=== PATIENT | female | born 1985 | race Hispanic/Latino ===

== ENCOUNTER 2017-08-28 17:59 | Emergency (ER) | payer BC, OTHER ==
[~2017-08-28 17:59] MED LIST: ISOVUE-370 76%-LOCM 1 ML ONE
[2017-08-28 18:31] LABS: #Basophils 0.1 thou/uL (0.0-0.2); #Eosinphils 0.1 thou/uL (0.0-0.7); #Lymphocytes 2.2 thou/uL (1.20-3.40); #Monocytes 0.6 thou/uL (0.11-0.59); #Neutrophils 4.8 thou/uL (1.40-6.50); %Basophils 1.7 % (0.0-1.0); %Eosinophils 1.3 % (0.0-10.0); %Lymphocytes 28.1 % (21.0-51.0); %Monocytes 7.9 % (0.0-10.0); Hemoglobin 14.2 g/dL (12.0-16.0); Mean Corpuscular HGB CONC 32.8 g/dL (32.0-36.0); Mean Corpuscular Hemoglobin 27.5 pg (27.0-31.0); Mean Platelet Volume 6.9 fL (7.4-10.4); Platelet Count 293 thou/uL (130-400); RBC Distribution Width 12.1 % (11.5-14.5); Red Blood Cell (RBC) Count 5.16 mill/uL (4.20-5.40); White Blood Cell (WBC) Count 7.8 thou/uL (4.8-10.8)
[2017-08-28 18:57] LABS: ALT (SGPT) 47 U/L (8-55); AST (SGOT) 24 U/L (5-34); Albumin 4.4 g/dL (3.5-5.0); Alkaline Phosphatase 67 U/L (40-150); Anion Gap 9 mmol/L (10-20); BUN (Urea Nitrogen) 13 mg/dL (7.0-18.7); Bilirubin, Total 0.4 mg/dL (0.2-1.2); Calc. Creatinine Clearance 0 mL/min (70-130); Calcium 9.5 mg/dL (7.8-10.44); Carbon Dioxide 27 mmol/L (22-29); Chloride 104 mmol/L (98-107); Estimated GFR-MDRD 87; Globulin 3.4 g/dL (2.4-3.5); Glucose 88 mg/dL (70-105); Protein, Total 7.8 g/dL (6.0-8.3); Sodium 136 mmol/L (136-145)
[2017-08-28 19:32] LABS: Bilirubin Negative (Negative); Blood, Urine Negative (Negative); Clarity CLEAR (Clear); Glucose, Urine (Dipstick) Negative (Negative); Leukocyte Negative (Negative); Nitrite Negative (Negative); Protein, Urine (Dipstick) Negative (Neg-Trace); Specific Gravity, Urine 1.023 (1.002-1.036); Urobilinogen 0.2 mg/dL (0.2-1.0); pH, Urine 7.5 (5.0-9.0)
[2017-08-28 19:34] LABS: Pregnancy Test - Urine (BHCG) Negative (Negative); Pregu Control Background? CLEAR/WHITE (CLR/WHITE); Pregu Control Bar Appear? YES (CONTROL BAR); Specific Gravity 1.023 (1.002-1.036)
[2017-08-28] MEDS ORDERED: Ondansetron HCl/PF 4 MG/2 ML Vial ONE (21:15)
--- NOTE | 2017-08-28 23:19 | CT ---
CT ABDOMEN AND PELVIS WITH CONTRAST: History: 32-year-old female with abdominal pain. Nausea. FINDINGS: The lung bases are clear. The liver demonstrates decreased attenuation compared to the spleen consist ent with fatty infiltration. The patient is post cholecystectomy. The spleen, pancreas, adrenal gland s, and kidneys are normal. No free air or free fluid or lymphadenopathy is seen in the abdomen or pel vis. A normal appearing appendix is present. There is an IUD in the uterus. A 3.5 cm right adnexal cy st is seen, likely ovarian. IMPRESSION: 1. No evidence of appendicitis. 2. Fatty liver. 3. 3.5 cm right adnexal cystic mass, likely ovarian. POS: [facility]
[2017-08-28] MEDS ORDERED: Ketorolac Tromethamine 30 MG/ML VIAL ONE (23:52)
--- NOTE | 2017-08-29 07:51 | ULT ---
PRELIMINARY REPORT/[facility]/EMERGENCY AFTER HOURS PROCEDURE: EXAM: US Pelvis, Transvaginal CLINICAL HISTORY: 32 years old, female; Pain; Other: Rlq pain TECHNIQUE: Real-time transvaginal pelvic ultrasound (complete) with image documentation. Transvaginal imaging wa s used for better evaluation of the endometrium and adnexa. COMPARISON: No relevant prior studies available. FINDINGS: The uterus measures 9.7 cm in length. There is no visible focal uterine mass. There is no intrauterine fluid. An IUD is present within the uterus. Endometrial thickness is 4.5 mm. There is no free pelvic fluid. Relatively simple appearing cyst in the right ovary, measuring 38 x 22 x 25 mm. A physiologic cyst is still likely, other etiologies not excluded. As clinically directed, follow up in one to three months may be useful to evaluate for resolution of a physiologic cyst, and to guard against a persistent/enlarging lesion. The left ovary appears unremarkable. Blood flow detected in each ovary. The urinary bladder was not completely evaluated/imaged at this time. IMPRESSION: 38 x 22 x 25 mm right ovarian cyst, see above details. Essentially unremarkable sonographic appearance of the uterus and left ovary. Other details discussed above. Thank you for allowing us to participate in the care of your patient. Dictated and Authenticated by: Angelo Zamora MD 08/29/2017 12:47 AM Central Time ([place] & [place]) FINAL REPORT ULTRASOUND PELVIC TRANSVAGINAL WITH DOPPLER: Date; 08/28/17 HISTORY: Pain. Concern for torsion. COMPARISON: None. FINDINGS: Simple cyst in right ovary measuring up to 3.8 cm. Right ovary measures 4.2 x 2.6 x 3.5 cm. Left ovar y measures 3.5 x 2.0 x 3.8 cm. Endometrial thickness is normal. Uterus measures 6.7 x 3.9 x 4.8 cm. A dequate vascular flow to both ovaries. No significant free intraperitoneal fluid. IMPRESSION: No evidence of an ovarian torsion. CODE: JEANETH POS: [facility]
== END 2017-08-29 01:57 | disposition home or self-care (01) ==
LOC: ERS 17:59
DX: N83.201 Unspecified ovarian cyst, right side (principal)
CPT/HCPCS: 36415; 74177; 76856; 80053; 81003; 81025; 83690; 84702; 85025; 96374; 96375; J1885; J2405